=== PATIENT | female | born 1980 | race Hispanic/Latino ===

== ENCOUNTER 2017-09-29 17:40 | Emergency (ER) | payer OTHER ==
[~2017-09-29] VITALS: Ht 152.4 cm; Wt 62.1 kg
[2017-09-29 17:57] VITALS: BP 149/80
--- NOTE | 2017-09-29 19:25 | RADIOLOGY REPORT ---
EXAMINATION: 4 views of the lumbar spine, 4 views of the left elbow, and 3 views of the left hand CLINICAL INFORMATION: Pain after fall COMPARISON: None available. FINDINGS: Lumbar spine: There are 5 nonrib-bearing lumbar-type vertebral bodies. Lumbar alignment is normal. The vertebral body heights are maintained. Disc spaces are preserved. No acute fractures and no acute subluxations. Sclerosis across the right greater than left SI joints. Left elbow: No fracture. The bony articulations are maintained. There is no elbow joint effusion. No radiopaque foreign bodies. Left hand: There is no fracture. The bony articulations are maintained. There are no radiopaque foreign bodies. IMPRESSION: - No acute osseous findings within the lumbar spine. Sclerosis across the right greater than left SI joints. - Unremarkable radiographs of the left elbow. - Unremarkable radiographs of the left hand.
[2017-09-29] MEDS ORDERED: IBUPROFEN800 M1 PO (19:39)
--- NOTE | 2017-09-29 19:39 | ED MVC/FALL/TRAUMA COMPLAINT ---
History of Present Illness General Chief Complaint: Fall Stated Complaint: L HAND PAIN/BACK PAIN Source: patient Exam Limitations: no limitations Vital Signs & Intake/Output Vital Signs & Intake/Output Vital Signs Date Time Temp Pulse Resp B/P B/P Pulse O2 O2 Flow FiO2 Mean Ox Delivery Rate 09/29 1757 98.3 76 18 149/80 98 Room Air ED Intake and Output 09/30 0000 09/29 1200 Intake Total 0 Output Total Balance 0 Intake, Oral 0 Patient 137 lb Weight Weight Reported by Patient Measurement Method Allergies Coded Allergies: amoxicillin (Mild, HIVES 09/29/17) Reconcile Medications Ibuprofen 800 MG TABLET 1 TAB PO TID PRN PAIN Triage Note: 36 YO FEMALE TO TRIAGE C/O SLIP AND FALL. C/O PAIN TO L HAND/WRIST AND LOWRE BACK. PT ABLE TO MOVE L HAND. Triage Nurses Notes Reviewed? yes Onset: Abrupt Duration: hour(s): (3), constant, continues in ED, getting worse Timing: single episode today Severity: mild, moderate Severity Numbers: 7 Injuries/Fall Location: upper extremity, back Method of Injury: fall Loss of Consciousness: no loss of consciousness No Modifying Factors: none Modifying Factors: Worsens With: movement, palpation. Associated Symptoms: muscle spasms LMP (ages 10-50): unknown : No Patient currently breastfeeds: No HPI: 36-year-old female no past medical history presents for evaluation after a fall. Patient states that she slipped on wet leaves falling onto her left outstretched arm. She did not hit her head or lose consciousness. She reports pain in her left hand/wrist left elbow and lower back. There was no direct trauma to the back. Patient was able to get up on her own and has been ambulating. The pain in her left upper extremity is worse with movement. No associated swelling. No numbness or tingling. No bowel or bladder dysfunction abdominal pain chest pain shortness of breath or fever. She is not taking any medicine for pain. She rates the pain as a 6 or 7 out of 10. No other injuries. (Luis Fletcher) Past History Travel History Traveled to [place] past 21 day No Medical History Any Pertinent Medical History? see below for history Neurological: NONE EENT: NONE Cardiovascular: NONE Respiratory: NONE Gastrointestinal: NONE Hepatic: NONE Renal: NONE Musculoskeletal: NONE Psychiatric: NONE Endocrine: NONE Blood Disorders: NONE Cancer(s): NONE BENCH MACHINE OPERATOR/Reproductive: NONE Tetanus Vaccine: 08/20/11 Surgical History Surgical History: non-contributory Psychosocial History What is your primary language Wolof Tobacco Use: Never used Family History Hx Contributory? No (Luis Fletcher) Review of Systems Review of Systems Constitutional: Reports: no symptoms. Eyes: Reports: no symptoms. Ears, Nose, Throat, Mouth: Reports: no symptoms. Respiratory: Reports: no symptoms. Cardiovascular: Reports: no symptoms. Gastrointestinal/Abdominal: Reports: no symptoms. Genitourinary: Reports: no symptoms. Musculoskeletal: Reports: see HPI, back pain, joint pain, joint swelling, muscle pain, muscle stiffness. Skin: Reports: no symptoms. Neurological/Psychological: Reports: no symptoms. All Other Systems: Reviewed and Negative (Luis Fletcher) Physical Exam Physical Exam General Appearance: well developed/nourished, no apparent distress, alert, awake Head: atraumatic, normal appearance Eyes: Bilateral: normal appearance, PERRL, EOMI, normal inspection. Ears, Nose, Throat, Mouth: hearing grossly normal, moist mucous membrane Neck: normal inspection, supple, full range of motion, no midline tenderness Respiratory: normal breath sounds, chest non-tender, no respiratory distress, lungs clear Cardiovascular: regular rate/rhythm, normal peripheral pulses Peripheral Pulses: 2+ radial (R), 2+ radial (L) Gastrointestinal: normal bowel sounds, soft, non-tender, no organomegaly Back: normal inspection, normal range of motion, vertebral tenderness, lumbar spine and paraspinou smuscles and tender to palpation. no brusing swelling or abrasions. no step offs or deformities. Extremities: normal range of motion, pain to palpation of the left wrist and elbow diffusly. no swelling or erythema. full rom intact with pain. n/v supply intact, Neurologic/Psych: no motor/sensory deficits, awake, alert, oriented x 3, normal gait, normal mood/affect Skin: intact, normal color, warm/dry Core Measures ACS in differential dx? No CVA/TIA Diagnosis No Sepsis Present: No Sepsis Focused Exam Completed? No (Luis Fletcher) Progress Differential Diagnosis: abd injury, C/T/L spine injury, ext injury, ICH, pelvis injury, spinal cord injury, fracture contusion, sprain Plan of Care: Patient seen and evaluated. She is here for evaluation after a fall. She has pain in her left hand/wrist left elbow and lower back. X-rays of these areas do not show any acute fractures. Patient is able to walk without difficulty. She is medicated with ibuprofen is feeling much better. Advised rest ice elevation compression. Tylenol or ibuprofen for pain. Follow-up with primary care doctor in within the next week. Discussed return precautions patient appears well she agrees the plan. Diagnostic Imaging: Viewed by Me: Radiology Read. Discussed w/RAD: Radiology Read. Radiology Impression: PATIENT: SATHISH DHILLON PRESENT AGE: 36 PATIENT ACCOUNT NO: [id number] : 81 LOCATION: [facility] ORDERING PHYSICIAN: Luis CHARLES SERVICE DATE: 09/29/17 EXAM TYPE: RAD - XRY-ELBOW 3 OR MORE VIEWS, L; XRY-HAND, LEFT; XRY-LUMBOSACRAL SPINE 4 VIEWS EXAMINATION: 4 views of the lumbar spine, 4 views of the left elbow, and 3 views of the left hand CLINICAL INFORMATION: Pain after fall COMPARISON: None available. FINDINGS: Lumbar spine: There are 5 nonrib-bearing lumbar-type vertebral bodies. Lumbar alignment is normal. The vertebral body heights are maintained. Disc spaces are preserved. No acute fractures and no acute subluxations. Sclerosis across the right greater than left SI joints. Left elbow : No fracture. The bony articulations are maintained. There is no elbow joint effusion. No radiopaque foreign bodies. Left hand: There is no fracture. The bony articulations are maintained. There are no radiopaque foreign bodies. IMPRESSION: - No acute osseous findings within the lumbar spine. Sclerosis across the right greater than left SI joints. - Unremarkable radiographs of the left elbow. - Unremarkable radiographs of the left hand. DICTATED BY: Juan Marcano MD DATE/TIME DICTATED:09/29/171915 COMPOSITION WEATHERBOARD APPLIER:MIGUEL ÁNGEL DATE/TIME TRANSCRIBED:09/29/171915 CONFIDENTIAL, DO NOT COPY WITHOUT APPROPRIATE AUTHORIZATION. (Luis Fletcher) Departure Departure Disposition: HOME OR SELF CARE Condition: Stable Clinical Impression Primary Impression: Fall Qualifiers: Encounter type: initial encounter Qualified Code: W19.XXXA - Unspecified fall, initial encounter Referrals: Luciana Parsons APRN (PCP/Family) Additional Instructions: Rest, avoid heavy lifting bending or excessive physical activity. Use ibuprofen 800 mg every 8 hours with food as needed for pain. YOU can also use Tylenol 1000 mg every 6 hours as needed. Follow-up with your primary care doctor within the next week. Monitor symptoms closely return with any concerns. Departure Forms: Customer Survey General Discharge Information Prescriptions: Current Visit Scripts Ibuprofen 1 TAB PO TID PRN PAIN #30 TAB (Luis Fletcher) PA/FREIGHT SERVICE INSPECTOR Co-Sign Statement Statement: ED Attending supervision documentation- [] I saw and evaluated the patient. I have also reviewed all the pertinent lab results and diagnostic results. I agree with the findings and the plan of care as documented in the PA's/FREIGHT SERVICE INSPECTOR's documentation. [X] I have reviewed the ED Record and agree with the PA's/FREIGHT SERVICE INSPECTOR's documentation. [] Additions or exceptions (if any) to the PAs/FREIGHT SERVICE INSPECTOR's note and plan are summarized below: [] (Yonny ELLIOTT,Sukhi Dasilva) ED Attending Observation Initial Observation Note: I have seen and personally examined SATHISH DHILLON on 09/30/17 at 1621. I agree with the current emergency department documentation. The disposition (admission or discharge) is uncertain at this time, she needs a period of observation for the following reason(s): The ED Nurse caring for this patient has been personally informed as to what the patient is being observed for. (Luis Fletcher)
== END 2017-09-29 19:50 ==
LOC: ERH 17:40
DX: M79.642 Pain in left hand (principal); M25.532 Pain in left wrist; M25.522 Pain in left elbow; M54.5 Low back pain; W01.0XXA Fall on same level from slipping, tripping and stumbling without subsequent striking against object, initial encounter; Y93.9 Activity, unspecified; Y92.9 Unspecified place or not applicable
CPT/HCPCS: 72110; 73080-LT; 73130-LT

== ENCOUNTER 2017-10-11 21:34 | Emergency (ER) | payer OTHER ==
[~2017-10-11] VITALS: Ht 152.4 cm; Wt 57.6 kg
[~2017-10-11 21:34] MED LIST: IBUPROFEN800 M1 PO
[2017-10-11 21:56] VITALS: BP 134/84
== END 2017-10-11 23:04 | disposition admitted as inpatient to this hospital (09) ==
LOC: ERH 21:34
DX: L50.9 Urticaria, unspecified (principal)